=== PATIENT | male | born 2000 ===

== ENCOUNTER 2022-07-10 22:01 | Emergency (ER) | payer OTHER, SELFPAY ==
--- NOTE | ~2022-07-10 | XR_ITS ---
XR hand RT min 3V DATE: 07/10/2022 22:43 INDICATION: Laceration to posterior side of fourth metacarpophalangeal area and fourth digit TECHNIQUE: 3 views COMPARISON: None FINDINGS: No fracture or dislocation, periosteal reaction or bone destruction. Joint spaces are prese rved. No erosive change or chondral calcinosis. No radiopaque foreign body is evident. There is minim al subcutaneous emphysema medial to the head of the fourth metacarpal head on the AP view. IMPRESSION: Minimal subcutaneous emphysema projecting medial to fourth metacarpal head; no radiograph ic foreign body, fracture or dislocation Reviewed, dictated and finalized at location A. IMPRESSION: Minimal subcutaneous emphysema projecting medial to fourth metacarp al head; no radiographic foreign body, fracture or dislocation
--- NOTE | ~2022-07-10 | XR_ITS ---
XR hand LT min 3V DATE: 07/10/2022 22:43 INDICATION: Hand laceration to anterior third and fourth metacarpophalangeal and digit areas. TECHNIQUE: 3 views COMPARISON: None FINDINGS: No fracture or dislocation, periosteal reaction or bone destruction, joint space narrowing, erosive change or chondrocalcinosis. IMPRESSION: Negative Reviewed, dictated and finalized at location A. IMPRESSION: Negative
[2022-07-10 22:11] VITALS: BP 144/86; PULSE 99; RESP 20; TEMP 36.7; O2SAT 97
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
[2022-07-10] MEDS: TETANUS,DIPHTHERIA,AC PERTUSSIS ADULT (0.5 ML) BOOSTRIX IM (22:43)
[2022-07-10 23:30] VITALS: BP 110/77; PULSE 80; RESP 19; O2SAT 99
== END 2022-07-11 00:55 | disposition home or self-care (01) ==
PROVIDERS: Emergency Provider Preventive Medicine Aerospace Medicine
DX: S61.412A Laceration without foreign body of left hand, initial encounter (principal); S61.411A Laceration without foreign body of right hand, initial encounter; Z23 Encounter for immunization; F17.200 Nicotine dependence, unspecified, uncomplicated; T79.7XXA Traumatic subcutaneous emphysema, initial encounter; W26.8XXA Contact with other sharp object(s), not elsewhere classified, initial encounter
CPT/HCPCS: 12001; 12002; 12042; 29125; 73130; 90471; 90715; 99284